=== PATIENT | female | born 1980 | race Caucasian/White ===

== ENCOUNTER 2017-06-09 16:41 | Emergency (ER) | payer MEDICAID, OTHER ==
[~2017-06-09] VITALS: Wt 62.7 kg
[2017-06-09 20:01] LABS: URINE BLOOD (Dip) POC 2+ (NEGATIVE)
--- NOTE | 2017-06-09 20:42 | RADRPT ---
PROCEDURE: US Pelvis CLINICAL INDICATION: Pelvic pain. TECHNIQUE: Transabdominal imaging of the pelvis was performed. COMPARISON: OB ultrasound dated 09/19/2014. FINDINGS: The uterus is normal in echogenicity with no focal abnormality identified. The endometrium is unremarkable in appearance. There is normal flow demonstrated in both ovaries. There are no adnexal masses. There is no free fluid within the pelvis. Measurements: Uterus: 7.2 x 4.6 x 5.1 cm Endometrium: 11 mm Right ovary: 4.6 x 3.6 x 3.8 cm Left ovary: 3.2 x 2.4 x 2.6 cm IMPRESSION: 1. Unremarkable ultrasound of the pelvis. RPTAT: HLBP .Sam Martinez MD, Date Time Electronically viewed and signed by .Sam Martinez MD, MD on 06/09/2017 20:42 .P/
--- NOTE | 2017-06-09 21:31 | RADRPT ---
PROCEDURE: Renal US. CLINICAL INDICATION: Flank pain. Hematuria. History of kidney stones TECHNIQUE: Multiple sonographic images of the kidneys were obtained. The images were reviewed on a PACS workstation. COMPARISON: No prior studies are available for comparison. FINDINGS: Right kidney: Normal in size, contour and echogenicity. No mass, calculus or hydronephrosis is pre sent. Renal size is estimated at 10.7 x 6 x 4.4 cm. Left kidney: Normal in size, contour and echogenicity. Linear echogenic focus of 11 mm in the inte rpolar region may reflect a nonobstructing calculus, no hydronephrosis is present. An interpolar cy st measures 1.6 x 1.5 x 1.4 cm. There is no evidence of solid mass. Renal size is estimated at 11. 9 x 6.4 x 5.1 cm. Urinary bladder: No abnormality is demonstrated. RPTAT:HJJR IMPRESSION: 1. Linear echogenic shadowing focus of approximately 11 mm unable to exclude a nonobstructing inter polar left renal calculus. 2. Incidental simple left renal cortical cyst. 3. Unremarkable right kidney and urinary bladder. Physician Sidra Date Time Electronically viewed and signed by Physician Sidra on 06/09/2017 21:30 /
--- NOTE | 2017-06-09 22:10 | ERD ---
ER Documentation Chief Complaint Date/Time DATE: 06/09/17 TIME: 21:57 Chief Complaint pelvic pain, dysuria HPI 28-year-old female complaining of urinary frequency since yesterday. She was able to produce large amount of urine each time. Patient also reports back pain and pelvic pain. She has nausea but no vomiting. Patient has history of kidney stones. Denies dysuria. Denies blood in the urine. Denies fever or chills. LMP 05/27/2017. Patient has been for 11 years, and is in a monogamous relationship. ROS All systems reviewed and are negative except as per history of present illness. Medications Home Meds No Active Prescriptions or Reported Meds Allergies Allergies: Coded Allergies: No Known Drug Allergy (Verified Allergy, Unknown, 10/09/14) PMhx/Soc History of Surgery: No Anesthesia Reaction: No Hx Neurological Disorder: No Hx Respiratory Disorders: No Hx Cardiac Disorders: No Hx Psychiatric Problems: No Hx Miscellaneous Medical Probl: Yes (UTIs) Hx Alcohol Use: No Hx Substance Use: No Hx Tobacco Use: No Smoking Status: Never smoker Physical Exam Vitals Vital Signs Date Time Temp Pulse Resp B/P Pulse Ox O2 Delivery O2 Flow Rate FiO2 06/09/17 17:13 98.8 98 20 142/86 99 Physical Exam General: Well-developed, well-nourished, conscious and coherent, in no distress Skin: Warm and dry without rash, good texture and turgor Head: Normocephalic without evidence of trauma Eyes: Sclera and conjunctivae normal; pupils equal, round, and reactive to light; extraocular movements are intact Chest: Normal AP diameter. Good expansion without retractions. Nontender. Lungs are clear to auscultate bilaterally with good tidal volume Heart: Regular rate and rhythm. No murmur, rub, or gallops heard Abdomen: Soft and nontender without masses, guarding, or rebound. Bowel sounds are active. No hepatosplenomegaly Back: Without spinal or CVA tenderness Pelvis: Mildly tender Extremities: Full range of motion. Good strength bilaterally. No clubbing, cyanosis, or edema. Peripheral pulses are intact. Sensation intact Neuro: Alert and oriented 4, GCS 15. Cranial nerves grossly intact. Motor and sensory exams nonfocal. Moves all extremities. Speech clear. Gait normal Results 24 hrs Laboratory Tests Test 06/09/17 20:07 Bedside Urine pH (LAB) 7.0 Bedside Urine Protein (LAB) Negative Bedside Urine Glucose (UA) Negative Bedside Urine Ketones (LAB) Negative Bedside Urine Blood 2+ Bedside Urine Nitrite (LAB) Negative Bedside Urine Leukocyte Esterase (L Negative PROCEDURE: US Pelvis CLINICAL INDICATION: Pelvic pain. TECHNIQUE: Transabdominal imaging of the pelvis was performed. COMPARISON: OB ultrasound dated 09/19/2014. FINDINGS: The uterus is normal in echogenicity with no focal abnormality identified. The endometrium is unremarkable in appearance. There is normal flow demonstrated in both ovaries. There are no adnexal masses. There is no free fluid within the pelvis. Measurements: Uterus: 7.2 x 4.6 x 5.1 cm Endometrium: 11 mm Right ovary: 4.6 x 3.6 x 3.8 cm Left ovary: 3.2 x 2.4 x 2.6 cm IMPRESSION: 1. Unremarkable ultrasound of the pelvis. RPTAT: HLBP .Sam Martinez MD, Date Time Electronically viewed and signed by .Sam Martinez MD, MD on 06/09/2017 20:42 .P/ CC: MARCIA BROWN ESTABLISHMENT GUIDE PROCEDURE: Renal US. CLINICAL INDICATION: Flank pain. Hematuria. History of kidney stones TECHNIQUE: Multiple sonographic images of the kidneys were obtained. The images were reviewed on a PACS workstation. COMPARISON: No prior studies are available for comparison. FINDINGS: Right kidney: Normal in size, contour and echogenicity. No mass, calculus or hydronephrosis is present. Renal size is estimated at 10.7 x 6 x 4.4 cm. Left kidney: Normal in size, contour and echogenicity. Linear echogenic focus of 11 mm in the interpolar region may reflect a nonobstructing calculus, no hydronephrosis is present. An interpolar cyst measures 1.6 x 1.5 x 1.4 cm. There is no evidence of solid mass. Renal size is estimated at 11.9 x 6.4 x 5.1 cm. Urinary bladder: No abnormality is demonstrated. RPTAT:HJJR IMPRESSION: 1. Linear echogenic shadowing focus of approximately 11 mm unable to exclude a nonobstructing interpolar left renal calculus. 2. Incidental simple left renal cortical cyst. 3. Unremarkable right kidney and urinary bladder. Physician Sidra Date Time Electronically viewed and signed by Mac Benítez Physician on 06/09/2017 21:30 JR/ CC: MARCIA BROWN. ESTABLISHMENT GUIDE Procedures/MDM Well-appearing 28-year-old female with history of kidney stone present ED with urinary frequency and pelvic pain. Urine dip is has 2+ blood, otherwise negative. Patient does not appear to have a urinary tract infection. Urine is negative. Pelvic ultrasound is unremarkable. Low suspicion for ectopic , ovarian torsion, or ruptured ovarian cyst. Renal ultrasound showed no hydronephrosis. Linear echogenic focus in the left kidney may reflect nonobstructing calculus. No abnormality on urinary bladder. It is unclear the cause of her urinary frequency, I do suspect it may be related to irritation from urolithiasis. Patient is advised to follow-up with her PCP for a urology referral. Patient appears well, stable for discharge and outpatient management. Medical decision making shared with patient and family. Education provided to patient and family. Patient and family expressed understanding of the plan. Medications on discharge: None. Follow-up: Primary care provider in 2-3 days or return to ED if worse. Disclaimer: Inadvertent spelling and grammatical errors are likely due to EHR/ dictation software use and do not reflect on the overall quality of patient care. Also, please note that the electronic time recorded on this note does not necessarily reflect the actual time of the patient encounter. Departure Diagnosis: Primary Impression: Urinary frequency Condition: Stable Patient Instructions: Understanding Kidney Stones Additional Instructions: Call your primary care doctor TOMORROW for an appointment during the next 2-3 days.See the doctor sooner or return here if your condition worsens before your appointment time. MARCIA BROWN NP Jun 09, 2017 22:10
[2017-06-09 22:30] VITALS: BP 122/74; PULSE 81; RESP 22; TEMP 98.3
== END 2017-06-09 22:30 | disposition home or self-care (01) ==
LOC: FTE 16:41
DX: R35.0 Frequency of micturition (principal)
CPT/HCPCS: 76775; 76856; 81003; Z7502